=== PATIENT | male | born 1945 | race African-American/Black ===

== ENCOUNTER 2023-01-15 13:57 | Inpatient (IN) | payer MEDICARE, OTHER ==
[~2023-01-15] VITALS: Ht 177.8 cm; Wt 94.1 kg
[2023-01-15] MEDS ORDERED: FLOMAX 0.40.4 MG/CAP PO (15:42)
--- NOTE | 2023-01-15 15:45 | NUR ---
Pt to room 353 on medical floor. Pt oriented to room and call light system. A&Ox4. HR RRR. LCTA. BSx4 hypoactive, ABD round & rigid. Describes ABD discomfort as "fullness." Radial & pedal pulses strong. IV site in L AC patent, no edema or redness. Pt remains NPO. Call light within reach.
[2023-01-15 15:49] VITALS: BP 136/81; PULSE 78; TEMP 98.3
[2023-01-15 17:05] LABS: BASO % 0.3 % (0.0-2.0); EOS % 0.6 % (0.0-4.0); GRAN # 3.8 K/mm3 (1.4-6.5); GRAN % 61.6 % (42.2-75.2); HEMATOCRIT 38.2 % (42.0-52.0); HEMOGLOBIN 12.3 g/dl (13.5-18.0); LYMPH # 1.5 K/mm3 (1.2-3.4); LYMPH % 24.1 % (20.0-51.0); MEAN CELL VOLUME 74 fl (80.0-100.0); MEAN CORPUSCULAR HEMOGLOBIN 24 pg (27-31); MEAN CORPUSCULAR HGB CONC 32 g/dl (33.0-37.0); MEAN PLATELET VOLUME 11.2 fl (7.4-10.4); MONO # 0.8 K/mm3 (0.1-0.6); MONO % 12.9 % (1.7-9.3); PLATELET COUNT 222 K/mm3 (130-400); RED BLOOD COUNT 5.19 M/mm3 (4.20-5.60); REDCELL DISTRIBUTION WIDTH-CV 13.2 % (11.5-14.5)
[2023-01-15 17:15] LABS: ALBUMIN 3.8 gm/dL (3.4-4.8); BILIRUBIN,TOTAL 1.1 mg/dL (0.2-1.2); CREATININE, serum 1.3 mg/dL (0.72-1.25); TOTAL PROTEIN 6.5 gm/dL (6.2-8.1)
[2023-01-15 17:21] LABS: POTASSIUM 2.9 mmol/L (3.5-4.5)
--- NOTE | 2023-01-15 17:28 | NUR ---
Potassium level - 2.9 read to BIB [facility].
[2023-01-15 18:15] LABS: COLLECTION METHOD CLEAN CATCH
[2023-01-15 18:26] LABS: MUCOUS Present (NOT PRESENT); SQUAMOUS EPITHELIAL 0-2 /hpf (0-10); URINE BACTERIA None Seen /hpf (NONE SEEN)
[2023-01-15 19:50] VITALS: BP 120/71; PULSE 82; TEMP 98.6
[2023-01-15 20:35] LABS: PH 5.5 (5.0-8.5); URINE APPEARANCE Clear (CLEAR/HAZY); URINE COLOR Yellow (YELLOW); URINE GLUCOSE Negative (NEGATIVE); URINE KETONE 2+ (NEGATIVE); URINE PROTEIN(semi-quant) 1+ (NEGATIVE)
[2023-01-15 20:36] LABS: URINE BLOOD TRACE-LYSED (NEGATIVE); URINE NITRATE Negative (NEGATIVE); URINE UROBILINOGEN 0.2 E.U/dL (0.2-1.0)
[2023-01-16] VITALS (12 sets, daily range): BP systolic 117–138; BP diastolic 67–83; PULSE 74–101; TEMP 97.6–99.7
[2023-01-16 07:08] LABS: BASO % 0.5 % (0.0-2.0); EOS # 0.1 K/mm3 (0.0-0.7); EOS % 1.1 % (0.0-4.0); GRAN # 3.1 K/mm3 (1.4-6.5); GRAN % 55.8 % (42.2-75.2); HEMOGLOBIN 11.5 g/dl (13.5-18.0); LYMPH # 1.5 K/mm3 (1.2-3.4); MEAN CELL VOLUME 74 fl (80.0-100.0); MEAN CORPUSCULAR HEMOGLOBIN 24 pg (27-31); MEAN CORPUSCULAR HGB CONC 32 g/dl (33.0-37.0); MEAN PLATELET VOLUME 11.3 fl (7.4-10.4); MONO # 0.8 K/mm3 (0.1-0.6); MONO % 15.1 % (1.7-9.3); PLATELET COUNT 243 K/mm3 (130-400); RED BLOOD COUNT 4.79 M/mm3 (4.20-5.60); REDCELL DISTRIBUTION WIDTH-CV 13.3 % (11.5-14.5)
[2023-01-16 07:13] LABS: HEMATOCRIT 35.5 % (42.0-52.0)
[2023-01-16 07:17] LABS: CALCIUM 8.5 mg/dL (8.4-10.2); CREATININE, serum 1.16 mg/dL (0.72-1.25); POTASSIUM 3.3 mmol/L (3.5-4.5)
--- NOTE | 2023-01-16 07:30 | NUR ---
Shift assessment completed. VSS. Tele on, HR regular. ABD distended with hyperactive bowel sounds in upper quadrants and hypoactive in lower quadrants. Pt. reports BM this am. NS and potassium infusing per protocal, IV in L AC patent. Reinforced NPO status.
--- NOTE | 2023-01-16 07:50 | NUR ---
Pt awake and laying in bed. Shift assessment completed. Pt remains on telemetry with NSR. ABD remains hypoactive x4. Pt denies ABD pain or discomfort. Pt expressess having x3 loose BM last night and feels ABD/chest relief since then. Denies NV. NS and K+ infusing @100mL/hr in L AC, no edema or redness. SCDs refused. No further request at this time. Call light within reach.
--- NOTE | 2023-01-16 09:23 | NUR ---
Initial visit; Patient seems to be doing well and thanked for stopping in.
--- NOTE | 2023-01-16 09:29 | NUR ---
SW met with the patient to discuss discharge plan. The patient lives in [place] with his , Tu (ph#[phone]). He reports independence with ADLs and does not have any DME. The patient's PCP is Dr. Paige at [facility] & he obtains his meds on [facility]. The patient does not have a DPOA-HC in EMR, but he states that he does have one completed and that it designates his . The patient plans to return home with his upon discharge. No additional needs at this time. *Discharge plan: home with *
[2023-01-17] VITALS (10 sets, daily range): BP systolic 104–148; BP diastolic 58–82; PULSE 81–92; TEMP 98.1–99
[2023-01-17 06:31] LABS: BASO % 0.2 % (0.0-2.0); GRAN # 8.8 K/mm3 (1.4-6.5); GRAN % 79.9 % (42.2-75.2); LYMPH # 0.9 K/mm3 (1.2-3.4); LYMPH % 7.8 % (20.0-51.0); MEAN CELL VOLUME 75 fl (80.0-100.0); MEAN CORPUSCULAR HEMOGLOBIN 24 pg (27-31); MEAN CORPUSCULAR HGB CONC 32 g/dl (33.0-37.0); MEAN PLATELET VOLUME 10.6 fl (7.4-10.4); MONO # 1.3 K/mm3 (0.1-0.6); MONO % 11.7 % (1.7-9.3); PLATELET COUNT 225 K/mm3 (130-400); RED BLOOD COUNT 4.65 M/mm3 (4.20-5.60); REDCELL DISTRIBUTION WIDTH-CV 13.4 % (11.5-14.5)
[2023-01-17 06:32] LABS: HEMATOCRIT 34.7 % (42.0-52.0)
[2023-01-17 06:36] LABS: CALCIUM 8.4 mg/dL (8.4-10.2); CREATININE, serum 1.23 mg/dL (0.72-1.25); POTASSIUM 4.1 mmol/L (3.5-4.5)
--- NOTE | 2023-01-17 07:23 | NUR ---
pt returned to room 353 from PACU per bed, pt given pain meds prior to arrival, very sleepy now, pt has midline abd dsg with small amt of bright red drainage in 2 spots, upper and lower and 3 sites on rt side of abd with bandaids. hunt in place draining dark jenn urine. IV fluids infusing per LAC IV @ 100 cc/hr. NAPPING MACHINE OPERATOR dilaudid started per order, pt placed on 2L O2 per NC d/t using cpap @ home @ noc, machine left at home. pt's and daughter at bedside. instructed on use of NAPPING MACHINE OPERATOR for pain.
--- NOTE | 2023-01-17 07:31 | NUR ---
pt awake and alert this am, pain controlled with DOOR BUILDER dilaudid, no new drainage noted on abd dressing. NG to LIS with scant amt of light greenish-brown drainage. bowel sounds present, pt eager to start clear liquids, no order yet. IVF infusing @ 100cc/hr, 500 cc dark jenn urine from hunt. daughter remained @ bedside all shift.
--- NOTE | 2023-01-17 11:07 | NUR ---
0822 shift assessment completed. patient reported not being able to pass gas. he remained NPO at time assessed. He reported no pain.Is on DISPOSAL MAN for pain control. Patient eager NG tube to be removed. notified patient waiting on order for removal.
--- NOTE | 2023-01-17 13:34 | NUR ---
SHIFT ASSESSMENT COMPLETED AND MORNING MEDICATIONS ADMINISTERED PER ORDER. PATIENT IS ALERT AND ORIENTED X4. DENIES PAIN. LUNGS CTA. SCDS IN PLACE. NG TUBE REMOVED PER ORDER, PATIENT TOLERATED WELL. PATIENT CURRENTLY ON CLEAR LIQUIDS, TOLERATING WELL. DIRECTOR [facility] PUMP RUNNING, NO SIGNS OF RESPIRATORY DISTRESS NOTED. DENIES NEEDS. FAMILY AT BEDSIDE.
--- NOTE | 2023-01-17 14:00 | NUR ---
PATIENT TRANSFERED FROM MEDICAL UNIT. AYO ARRIVED IN STABLE CONDITION. CLOTH SHEARER WORKING, IVF INFUSING. RUIZ PATENT AND DRAINING. PATIENT VOICES GOOD PAIN CONTROL. PATIENT DENIES ANY NEEDS OR COMPLAINTS AT THIS TIME.
--- NOTE | 2023-01-17 19:25 | NUR ---
pt resting in bed, family at bedside. reports that pain is minimal right now. FIBERGLASS LUGGAGE MOLDER dilaudid in place. pt on 2l nasal cannula. vss and tele in place. scds to ble. denies n/v, tolerating dinner well. reports belching. bowel sounds are active. x3 lap sites and midline incision are cdi. hunt to dd w orange urine output. fluids infusing into left ac. pt denies other needs at this time. call light within reach.
[2023-01-18] VITALS (9 sets, daily range): BP systolic 104–150; BP diastolic 58–83; PULSE 86–106; TEMP 97.9–99.2
[2023-01-18 06:07] LABS: BASO % 0.2 % (0.0-2.0); EOS % 0.1 % (0.0-4.0); GRAN # 8.4 K/mm3 (1.4-6.5); GRAN % 77.7 % (42.2-75.2); HEMOGLOBIN 11.4 g/dl (13.5-18.0); LYMPH % 9.6 % (20.0-51.0); MEAN CELL VOLUME 73 fl (80.0-100.0); MEAN CORPUSCULAR HEMOGLOBIN 24 pg (27-31); MEAN CORPUSCULAR HGB CONC 33 g/dl (33.0-37.0); MEAN PLATELET VOLUME 11.5 fl (7.4-10.4); MONO # 1.3 K/mm3 (0.1-0.6); MONO % 11.9 % (1.7-9.3); PLATELET COUNT 259 K/mm3 (130-400); RED BLOOD COUNT 4.76 M/mm3 (4.20-5.60); REDCELL DISTRIBUTION WIDTH-CV 13.1 % (11.5-14.5)
[2023-01-18 06:08] LABS: HEMATOCRIT 34.8 % (42.0-52.0)
[2023-01-18 06:24] LABS: CALCIUM 8.5 mg/dL (8.4-10.2); CREATININE, serum 0.98 mg/dL (0.72-1.25); POTASSIUM 3.8 mmol/L (3.5-4.5)
--- NOTE | 2023-01-18 09:15 | NUR ---
VSS, pain 3/10, 1L O2 via NC. Fluids infusing per order, Dilaudid COMMUNITY HEALTH SPECIALIST continues at ordered rate, no basal infusion. No BS noted to L abdomen. c/o acid reflux, 525ml emesis green/brown bile. Stauffer d/c per pt request/order from Dr. Clark. Reports being unable to urinate, in turn causing inability to pass gas or move bowels. Educate pt about ileus, encourage pt to ambulate. Refuses at this time. Mid-abdomen drsg with small amount dried drainage at distal and proximal ends, removed by provider. [place] to incsion intact. Placed new vaseline guaze, covered with airstrip drsg.
--- NOTE | 2023-01-18 13:15 | NUR ---
Initial visit: Certified Flex Endoscope Reprocessor stopped by room on rounds. Pt was resting and content. Pt has no needs right now. Certified Flex Endoscope Reprocessor will follow up as needed.
--- NOTE | 2023-01-18 15:45 | NUR ---
Pt reports that he is still uncomfortable. Abdomen continues to be distended, not as firm to palpation as this AM. Pt denies any emesis since this AM, denies passing gas or stool. Noted to have active bs to R side and hypoactive/minimal on L side. Pt reports that he has had urine output since hunt d/c.
--- NOTE | 2023-01-18 19:10 | NUR ---
PT HAS MODERATE AMOUNT OF CALDERÓN EMESIS IN BASIN. NEEDS NEW IV SITE.
--- NOTE | 2023-01-18 19:15 | NUR ---
STARTED NEW IV SITE TO RT HAND WITH #20 INSYTE ON FIRST ATTEMPT, CONNECTED TO IVF AND AUDITING CODER. PT ASKING FOR NAUSEA MEDS. TAKING ICE CHIPS ONLY. REPORTS PASSING MINIMAL FLATUS, ABD DISTENDED, SOFT. ENCOURAGED PT TO AMBULATE IN HALLWAY THIS WILL HELP HIS ILEUS. PT VERBALIZES UNDERSTANDING, BUT WANTS TO "TRY" THAT TOMORROW.
--- NOTE | 2023-01-18 19:50 | NUR ---
ZOFRAN 4MG IVP GIVEN AT THIS TIME.
--- NOTE | 2023-01-18 21:00 | NUR ---
PT TAKES HS MED WITH SIP OF WATER. DENIES NAUSEA OR PAIN. ABD DISTENDED, SOFT. HYPOACTIVE BS NOTED. MIDLINE INCISION D/I, RT ABD ROBOTIC SITES X3 D/I. PT VOIDING WITHOUT PROBLEM. IVF INFUSING TO RT HAND WITHOUT REDNESS OR SWELLING.
[2023-01-19] VITALS (7 sets, daily range): BP systolic 115–140; BP diastolic 70–81; PULSE 86–93; TEMP 97.5–98.6
--- NOTE | 2023-01-19 02:30 | NUR ---
PT SITTING AT EDGE OF BED. DENIES NAUSEA OR PAIN AT THIS TIME. RELATIONSHIP ASSOC OFF, PT REPORTS NOT NEEDING IT. IVF CONTINUE.
--- NOTE | 2023-01-19 03:00 | NUR ---
PT BACK IN BED. NO CONCERNS VOICED AT THIS TIME.
--- NOTE | 2023-01-19 04:39 | NUR ---
PT HAS SMALL SOFT CALDERÓN BM IN BATHROOM, VOIDING WITHOUT PROBLEM. BACK TO BED.
--- NOTE | 2023-01-19 04:48 | NUR ---
PT HAS 400CC GREEN EMESIS AT THIS TIME. ZOFRAN GIVEN. ASKED PT IF HE WOULD WANT AN NGT, HE DECLINED.
[2023-01-19 06:36] LABS: HEMOGLOBIN 10.7 g/dl (13.5-18.0); MEAN CELL VOLUME 73 fl (80.0-100.0); MEAN CORPUSCULAR HEMOGLOBIN 24 pg (27-31); MEAN CORPUSCULAR HGB CONC 33 g/dl (33.0-37.0); MEAN PLATELET VOLUME 11.2 fl (7.4-10.4); PLATELET COUNT 232 K/mm3 (130-400); RED BLOOD COUNT 4.49 M/mm3 (4.20-5.60)
[2023-01-19 06:39] LABS: HEMATOCRIT 32.7 % (42.0-52.0)
[2023-01-19 06:50] LABS: CALCIUM 8.6 mg/dL (8.4-10.2); CREATININE, serum 1.1 mg/dL (0.72-1.25); POTASSIUM 3.4 mmol/L (3.5-4.5)
[2023-01-19 07:59] LABS: BAND 17 % (0-10); LYMPHOCYTE 23 % (20.0-51.0); MICROCYTOSIS 1+; NEUTROPHILS 49 % (42.0-75.2)
[2023-01-19 08:00] LABS: HYPOCHROMIA 1+; PLATELET ESTIMATE NORMAL (NORMAL)
--- NOTE | 2023-01-19 08:49 | NUR ---
PATIENT ALERT AND ORIENTED X4. VSS. PATIENT HERE FOR LBO/OPEN LEFT HEMICOLECTOMY. LAP SITES X3, CDI WITH BANDAID. MIDLINE WITH GAUZE WITHOUT DRAINAGE. PATIENT INSTRUCTED TO WALK THIS MORNING. PATIENT REPORTS BM AND ONE BOUT OF EMESIS THIS AM. PATIENT TOLERATING ICE CHIPS/WATER. BUSINESS SUPPORT SPECIALIST PUMP INFUSING IN RIGHT HAND WITH D5W @75. K PROTOCOL, REPLENISHING ORDERED. CALL LIGHT IN REACH.
--- NOTE | 2023-01-19 12:04 | NUR ---
Paper Bag Press Operator rounds: Paper Bag Press Operator visit attempted. Monitor wasbeeping; two staff members (physical therapy?) were in room with Patient. No visit completed.
--- NOTE | 2023-01-19 20:35 | NUR ---
PT AMBULATES WITH WALKER/GAIT BELT/ONE ASSIST IN HALLWAYS, MAKES 4 LAPS AROUND THE UNIT. DENIES PAIN UPON RETURNING TO ROOM. HAD EMESIS AT 1999, DENIES NAUSEA AT THIS TIME.
[2023-01-20 03:38] VITALS: BP 128/71; PULSE 82; TEMP 98.9
--- NOTE | 2023-01-20 04:04 | NUR ---
PT IN BATHROOM, REPORTS ABD PAIN. DILAUDID 0.5MG IVP GIVEN. NO EMESIS, MILD NAUSEA.
--- NOTE | 2023-01-20 04:35 | NUR ---
PT IN BED, REPORTS HAVING A BM, NO FLATUS. DID NOT HAVE ANY EMESIS WHEN UP.
[2023-01-20 07:07] VITALS: BP 130/74; PULSE 80; TEMP 98.2
[2023-01-20 08:24] LABS: HEMATOCRIT 31.2 % (42.0-52.0); HEMOGLOBIN 9.8 g/dl (13.5-18.0); MEAN CELL VOLUME 74 fl (80.0-100.0); MEAN CORPUSCULAR HEMOGLOBIN 23 pg (27-31); MEAN CORPUSCULAR HGB CONC 31 g/dl (33.0-37.0); MEAN PLATELET VOLUME 10.7 fl (7.4-10.4); PLATELET COUNT 269 K/mm3 (130-400); RED BLOOD COUNT 4.21 M/mm3 (4.20-5.60); REDCELL DISTRIBUTION WIDTH-CV 12.8 % (11.5-14.5)
[2023-01-20 08:35] LABS: BAND 5 % (0-10); EOSINOPHIL 3 % (0-4); LYMPHOCYTE 15 % (20.0-51.0); NEUTROPHILS 57 % (42.0-75.2)
[2023-01-20 08:36] LABS: CALCIUM 8.4 mg/dL (8.4-10.2); HYPOCHROMIA 2+; MICROCYTOSIS 1+; PLATELET ESTIMATE NORMAL (NORMAL); POTASSIUM 3.5 mmol/L (3.5-4.5)
--- NOTE | 2023-01-20 09:15 | NUR ---
Patient resting in bed. He had episode of emesis, assisted with hygiene. Prn zofran given. Patient had been up to the bathroom prior. He reports "burping", which caused his emesis. Encouraged him to take it very slow with liquids. Ivf continue with K+ replacement per protocol.
--- NOTE | 2023-01-20 10:00 | NUR ---
Patient supportive family at bedside. Patient assisted with shower. Bandaids removed from Lap sites & new airstrip to midline. [place] all intact. Patient reports emesis resolved. Shower did exhausted him, but he did well. Will let him visit with family.
[2023-01-20 11:28] VITALS: BP 118/74; PULSE 78; TEMP 98.1
--- NOTE | 2023-01-20 14:57 | NUR ---
Patient up to the bathroom, small stool noted. He reports overall feeling better. Denies the need for pain medication at this time. Continue with slow infusion of k+ replacement.
[2023-01-20 15:14] VITALS: BP 129/90; PULSE 85; TEMP 98.2
--- NOTE | 2023-01-20 17:59 | NUR ---
Patient up to the bathroom, another loose watery stool. Patient stand by to ambulate halls, steady on his feet with walker. He did well. Patient taking is very slow with PO intake. Scds ble. Will monitor
--- NOTE | 2023-01-20 19:12 | NUR ---
Patient resting in bed. with family at his side. Adjustments made to medications for nausea. See emar. Protonix given
--- NOTE | 2023-01-20 19:48 | NUR ---
PT HAS LOOSE GREEN STOOL IN BATHROOM. DENIES PAIN AT THIS TIME.
[2023-01-20 20:11] VITALS: BP 117/65; PULSE 82; TEMP 98.7
--- NOTE | 2023-01-20 21:00 | NUR ---
PT IN BED. DENIES NEED FOR PAIN OR NAUSEA MEDS AT THIS TIME. IVF TO RT HAND INFUSING WITHOUT PROBLEM. HAS BEEN UP TO BATHROOM TO VOID AND HAVE LOOSE STOOLS.
[2023-01-20 23:15] VITALS: BP 112/61; PULSE 80; TEMP 98.2
[2023-01-21 03:07] VITALS: BP 124/59; PULSE 81; TEMP 97.7
--- NOTE | 2023-01-21 04:00 | NUR ---
PT AWAKE, NEW BAG IVF HUNG. PT REPORTS LOOSE STOOLS AT 0100 AND 0300. DENIES NEED FOR PAIN OR NAUSEA MEDS AT THIS TIME. DRSG TO MIDLINE D/I, 3 ROBOTIC SITES WITH ONE STAPLE EACH JOSE.
[2023-01-21 06:23] LABS: BASO % 0.2 % (0.0-2.0); EOS # 0.4 K/mm3 (0.0-0.7); EOS % 5.3 % (0.0-4.0); GRAN # 3.8 K/mm3 (1.4-6.5); GRAN % 57.8 % (42.2-75.2); LYMPH # 1.3 K/mm3 (1.2-3.4); MEAN CELL VOLUME 72 fl (80.0-100.0); MEAN CORPUSCULAR HGB CONC 33 g/dl (33.0-37.0); MEAN PLATELET VOLUME 10.8 fl (7.4-10.4); MONO # 1.1 K/mm3 (0.1-0.6); MONO % 16.9 % (1.7-9.3); PLATELET COUNT 270 K/mm3 (130-400); RED BLOOD COUNT 4.14 M/mm3 (4.20-5.60); REDCELL DISTRIBUTION WIDTH-CV 12.5 % (11.5-14.5)
[2023-01-21 06:30] LABS: HEMATOCRIT 29.9 % (42.0-52.0); HEMOGLOBIN 9.8 g/dl (13.5-18.0); MEAN CORPUSCULAR HEMOGLOBIN 24 pg (27-31)
[2023-01-21 06:49] LABS: CALCIUM 8.3 mg/dL (8.4-10.2); CREATININE, serum 0.89 mg/dL (0.72-1.25); POTASSIUM 3.1 mmol/L (3.5-4.5)
[2023-01-21 07:08] VITALS: BP 129/71; PULSE 81; TEMP 97.9
--- NOTE | 2023-01-21 08:02 | NUR ---
Patient sitting up in bed. Reuesting mcclendon and eggs this am. Denies nausea. Reports positive flatus. Denies pain. Abdomen soft. bowels audible. Spoke with and Low fiber diet ordered, light breakfast ordered for patient, instructed him to take it slow. K+ replacement per orders, started Iv, but if he tolerated Po will change to oral replacement. Will monitor.
[2023-01-21 11:08] VITALS: BP 121/74; PULSE 75; TEMP 98.1
--- NOTE | 2023-01-21 12:01 | NUR ---
Patient has been ambulating the halls, He has done well with low fiber diet & denies nausea. Supportive family at bedside. Patient in positive spirits.
--- NOTE | 2023-01-21 14:34 | NUR ---
Patient reports he has continued to has positive stool, but less frequently. Patient denies nausea & pain, but requesting a sprite to assist in "belching"
[2023-01-21 15:26] VITALS: BP 135/82; PULSE 81; TEMP 98.3
--- NOTE | 2023-01-21 18:45 | NUR ---
Patient has a large episode of emesis, bile green in color. notified. Ivf ordered. One dose of phenergan given & patient sleepy after. No further emesis. Did report feeling better post emesis. K+ changed to Iv since patient did not tolerate second tab of PO. Bedside report to Mariama HUANG
[2023-01-21 20:25] VITALS: BP 118/76; PULSE 86; TEMP 98.2
--- NOTE | 2023-01-21 21:25 | NUR ---
pt resting in bed. meds given and assessment complete. pt denies pain and nausea. vss and tele in place. abdominal sites are cdi. bowel sounds are present. pt denies passing breonna. LR and potassium are infusing into right hand. pt denies needs at this time and would like to rest. call light in reach.
[2023-01-21 23:51] VITALS: BP 122/76; PULSE 80; TEMP 97.3
--- NOTE | 2023-01-22 02:05 | NUR ---
pt reports having abdominal pain and requesting pain medication, norco given. pt denies nausea. pt up to bathroom and had a small bm.
[2023-01-22 04:26] VITALS: BP 111/66; PULSE 83; TEMP 97.9
--- NOTE | 2023-01-22 05:41 | NUR ---
pt reports that he feels "much better" today. denies pain and nausea and vomiting. tolerating water and ice chips. no other needs this morning.
[2023-01-22 07:09] VITALS: BP 112/68; PULSE 83; TEMP 97.6
[2023-01-22 09:44] LABS: BASO % 0.3 % (0.0-2.0); EOS # 0.3 K/mm3 (0.0-0.7); EOS % 2.8 % (0.0-4.0); GRAN # 5.7 K/mm3 (1.4-6.5); GRAN % 64.5 % (42.2-75.2); HEMATOCRIT 33.2 % (42.0-52.0); HEMOGLOBIN 10.5 g/dl (13.5-18.0); LYMPH # 1.7 K/mm3 (1.2-3.4); LYMPH % 19.1 % (20.0-51.0); MEAN CELL VOLUME 74 fl (80.0-100.0); MEAN CORPUSCULAR HEMOGLOBIN 23 pg (27-31); MEAN CORPUSCULAR HGB CONC 32 g/dl (33.0-37.0); MONO # 1.1 K/mm3 (0.1-0.6); MONO % 12.1 % (1.7-9.3); PLATELET COUNT 263 K/mm3 (130-400); RED BLOOD COUNT 4.49 M/mm3 (4.20-5.60); REDCELL DISTRIBUTION WIDTH-CV 12.7 % (11.5-14.5)
[2023-01-22 10:04] LABS: CALCIUM 8.4 mg/dL (8.4-10.2); CREATININE, serum 0.96 mg/dL (0.72-1.25); POTASSIUM 3.5 mmol/L (3.5-4.5)
--- NOTE | 2023-01-22 10:46 | NUR ---
PT ASSESSMENT DONE AT 0715. PT FOUND A&O X4 LAYING IN BED. HR & RHYTHM NORMAL, WITH TELE IN PLACE. LUNG SOUNDS CLEAR IN ALL NELSON. BOWEL SOUNDS ARE HYPOACTIVE, PT STATES HAVING BOWEL MOVEMENTS. ABDOMINAL DRESSING IS CLEAN, DRY AND INTACT. DEEPALI TO THE LEFT ABDOMEN ARE CLEAN, DRY AND INTACT. PT HAS NO NOTED DEFICITS IN ALL EXTREMITIES. IV IN PLACE TO RIGHT HAND, LR RUNNING AT 75 ml/hr. PT DENIES COMPLAINTS AT THIS TIME.
[2023-01-22 11:13] VITALS: BP 115/74; PULSE 82; TEMP 97.5
[2023-01-22] MEDS ORDERED: MIRALAX PA17 GM/Dose PO (11:19)
--- NOTE | 2023-01-22 15:45 | NUR ---
Equity Trader attended clinical rounds with the team and patient may be discharged later today. SW met with patient to present and review IM form. Patient verbalized understanding then provided signature. SW placed form on chart and provided copy to patient. Discharge Plan: Home
--- NOTE | 2023-01-22 16:00 | NUR ---
Pt. ready to discharge, tolerating diet. Reviewed and gave pt. and family discharge paperwork. Pt. and family voice understanding. INT discontinued from rt. hand. Pt. dressed and escorted out by this nurse.
== END 2023-01-22 16:00 | disposition home or self-care (01) | DRG 330 ==
LOC: MEDICAL 13:57 → SURG 01-17 16:12
PROVIDERS: Internal Medicine; Physician Assistant; Surgery; ADMIT Student in an Organized Health Care Education/Training Program
PROC: 0DBB0ZZ Excision of Ileum, Open Approach (ICD-10-PCS; 2023-01-16)
PROC: 0DB80ZZ Excision of Small Intestine, Open Approach (ICD-10-PCS; 2023-01-16)
PROC: 8E0W4CZ Robotic Assisted Procedure of Trunk Region, Percutaneous Endoscopic Approach (ICD-10-PCS; 2023-01-16)
PROC: 0DTG0ZZ Resection of Left Large Intestine, Open Approach (ICD-10-PCS; principal; 2023-01-16 14:30)
PROC: 0DNL0ZZ Release Transverse Colon, Open Approach (ICD-10-PCS; 2023-01-16 14:30)
DX: C18.6 Malignant neoplasm of descending colon (principal); C7A.8 Other malignant neuroendocrine tumors; K56.609 Unspecified intestinal obstruction, unspecified as to partial versus complete obstruction; K91.89 Other postprocedural complications and disorders of digestive system; K56.7 Ileus, unspecified; N40.0 Benign prostatic hyperplasia without lower urinary tract symptoms; N18.9 Chronic kidney disease, unspecified; E87.6 Hypokalemia; K21.9 Gastro-esophageal reflux disease without esophagitis; K63.89 Other specified diseases of intestine; G47.33 Obstructive sleep apnea (adult) (pediatric); M19.90 Unspecified osteoarthritis, unspecified site; D64.9 Anemia, unspecified; Y83.8 Other surgical procedures as the cause of abnormal reaction of the patient, or of later complication, without mention of misadventure at the time of the procedure; Z87.891 Personal history of nicotine dependence; Z88.8 Allergy status to other drugs, medicaments and biological substances; Z23 Encounter for immunization
CPT/HCPCS: A4314; A9284; C9113; G0378; G0379; J0330; J0690; J1100; J1170; J1650; J2250; J2370; J2405; J2550; J2704; J2795; J3010; J3480; J7030; J7070; J7120

== ENCOUNTER 2023-02-21 07:45 | Day surgery (SDC) | payer MEDICARE, OTHER ==
[~2023-02-21] VITALS: Ht 177.8 cm; Wt 92.7 kg
[~2023-02-21 07:45] MED LIST: FLOMAX 0.40.4 MG/CAP PO; MIRALAX PA17 GM/Dose PO
[2023-02-21] MEDS ORDERED: MAGNESIUM ELEM300 MG PO (08:27)
[2023-02-21 08:37] VITALS: BP 154/77; PULSE 63; TEMP 97.3
[2023-02-21 10:50] VITALS: BP 112/66; PULSE 70; TEMP 97.9
[2023-02-21 11:12] VITALS: BP 127/95; PULSE 60
--- NOTE | 2023-02-21 11:47 | NUR ---
1050-PATIENT ARRIVED FROM OR VIA CART, REPORT OBTAINED FROM [facility]. VITAL SIGNS TAKEN, VSS. PATIENT DENIES NAUSEA, REPORTS MILD DISCOMFORT AND "PULLING" SENSATION TO LEFT SIDE CHEST. PORT SITE TO RIGHT CHEST DRY AND INTACT. 1100-PATIENT ASSISTED TO BATHROOM WITH SBA, PATIENT GAIT STABLE. 1104-PATIENT GIVEN PO FLUIDS, TOLERATING WELL. DENIES NAUSEA, PAIN MINIMAL. VSS 1125-DISCHARGE INSTRUCTIONS REVIEWED WITH PT AND FAMILY AT BEDSIDE, QUESTIONS INVITED. PATIENT DRESSED INDEPENDENTLY AND AMBULATED TO RESTROOM. IV CATHETER SITE DISCONTINUED, CATHETER TIP INTACT. PRESSURE HELD AND BANDAGE APPLIED. 1140-PATIENT DISCHARGED HOME VIA WHEELCHAIR, ACCOMPANIED BY FAMILY MEMBER. DISCHARGE PACKET AND PATIENT BELONGINGS SENT WITH PT AT TIME OF DISCHARGE.
== END 2023-02-21 11:40 | disposition home or self-care (01) ==
LOC: SDCO 07:45
DX: C18.6 Malignant neoplasm of descending colon (principal); C7A.8 Other malignant neuroendocrine tumors; Z87.891 Personal history of nicotine dependence
CPT/HCPCS: C1788; J0690; J1644; J2704; J7120